=== PATIENT | male | born 2000 | race Caucasian/White ===

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

== ENCOUNTER 2020-01-18 10:00 | Emergency (ER) | payer OTHER ==
[2020-01-18 10:16] VITALS: BP 136/83; PULSE 85; BMI 19.6
[2020-01-18 10:17] VITALS: TEMP 100.4
[2020-01-18] MEDS ORDERED: ACETAMINOPHEN 325 MG TABLET (FP) PO ONE (10:17)
[2020-01-18] MEDS ORDERED: ACETAMINOPHEN 325 MG TABLET (FP) ONE (10:19)
== END 2020-01-18 11:21 | disposition home or self-care (01) ==
LOC: JERFT 10:00
DX: U07.1 COVID-19 (principal); R50.9 Fever, unspecified; R06.02 Shortness of breath
CPT/HCPCS: 99283-25; C9803; U0003

== ENCOUNTER 2022-05-05 09:54 | Emergency (ER) | payer OTHER ==
[2022-05-05 10:39] VITALS: RESP 16; TEMP 97.7; BMI 20.2
[2022-05-05 13:31] LABS: BASO % 0.6 % (0-2.0); EOS % 3.2 % (0-4.5); HEMATOCRIT 40.4 % (35.4-49); LYMPH % 32.3 % (8-40); MCH 31.1 pg (25.7-33.7); MCHC 34.6 g/dl (32.0-35.9); MEAN CELL VOLUME 89.9 fl (80-96); MEAN PLT VOLUME 8.4 fl (7.5-11.1); MONO % 8.5 % (3.8-10.2); NEUT % 55.4 % (42.8-82.8); PLATELET COUNT 231 10^3/uL (134-434); RDW 13.8 % (11.9-15.9); WHITE BLOOD COUNT 6.1 K/mm3 (4.0-10.0)
[2022-05-05 13:42] LABS: COCAINE, UR NEGATIVE (NEGATIVE); OPIATES, URI NEGATIVE (NEGATIVE); URINE AMPHETAMINES NEGATIVE (NEGATIVE)
[2022-05-05 13:43] LABS: METHADONE, UR NEGATIVE (NEGATIVE); PHENCYCLIDINE,URINE NEGATIVE (NEGATIVE); URINE BARBITURATES NEGATIVE (NEGATIVE); URINE BENZODIAZEPINES NEGATIVE (NEGATIVE)
[2022-05-05 13:50] LABS: CHLORIDE 110 mmol/L (98-107); SODIUM 141 mmol/L (136-145)
[2022-05-05 13:52] LABS: CALCIUM 8.8 mg/dL (8.5-10.1)
[2022-05-05 13:53] LABS: ALBUMIN 4.2 g/dl (3.4-5.0); ANION GAP 6 MMOL/L (8-16); BLOOD UREA NITROGEN 10.6 mg/dL (7-18); CO2 25 mmol/L (21-32); GLUCOSE,RANDOM 85 mg/dL (74-106)
[2022-05-05 13:56] LABS: CREATININE 0.8 mg/dL (0.55-1.3); SGOT/AST 19 U/L (15-37); SGPT/ALT 17 U/L (13-61)
[2022-05-05 13:57] LABS: BILIRUBIN,TOTAL 0.8 mg/dL (0.2-1); TOT PROT 7.2 g/dl (6.4-8.2)
[2022-05-05 13:59] LABS: ALK PHOS 58 U/L (45-117)
[2022-05-05 17:14] VITALS: BP 110/57; PULSE 56
== END 2022-05-05 18:16 | disposition home or self-care (01) ==
LOC: JER 09:54
DX: R41.0 Disorientation, unspecified (principal); R41.3 Other amnesia; R47.01 Aphasia; Z20.822 Contact with and (suspected) exposure to COVID-19
CPT/HCPCS: 36415; 70450-TC; 80053; 80307; 84443; 85025; 93005; 93010; 99285-25; C9803-CS; U0003; U0005